=== PATIENT | female | born 2005 | race African-American/Black ===

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

== ENCOUNTER 2025-01-26 18:54 | Emergency (ER) | payer SELFPAY ==
--- NOTE | 2025-01-26 21:03 | EDPHYS ---
Physician Documentation [facility] Name: Rivas Vidal Age: 19 yrs Sex: Female : 2005 Arrival Date: 01/26/2025 Time: 18:54 Bed IW3 Private MD: ED Physician Terrence Jo HPI: 01/26 20:35 This 19 yrs old Black Female presents to ER via Ambulatory with complaints of Allergic cp Reaction. 20:35 swelling, tenderness of right upper eyelid. cp 20:35 Onset: The symptoms/episode began/occurred gradually, 2 week(s) ago. Duration: the cp symptoms are continuous. Associated signs and symptoms: Pertinent negatives: fever, drainage. Patient does not utilize any form of vision correction. 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 - Infectious Disease History:: Denies. - Social history:: Smoking status: Reported history of juuling and/or vaping. Patient/guardian denies using alcohol, street drugs. ROS: 20:40 Constitutional: Negative for chills, fever, cp 20:40 Eyes: Positive for swelling, tenderness of right upper eyelid, Negative for visual disturbance, 20:40 ENT: Negative for drainage from ear(s), ear pain, sore throat, difficulty swallowing, difficulty handling secretions, 20:40 Respiratory: Negative for cough, shortness of breath, wheezing, 20:40 Abdomen/GI: Negative for abdominal pain, vomiting, diarrhea, constipation, 20:40 Skin: Negative for rash, 20:40 All other systems are negative, Exam: 20:45 Constitutional: The patient appears in no acute distress, alert, awake, comfortable, cp non-toxic, well developed, well nourished, 20:45 Constitutional: This is a well developed, well nourished patient who is awake, alert, cp and in no acute distress. 20:45 Eyes: Periorbital structures: appear normal, Pupils: equal, round, and reactive to light and accomodation, Extraocular movements: intact throughout, Conjunctiva: normal, no exudate, no injection, Examination of the other eye reveals no obvious gross abnormality, right upper lid with mid swelling, noted stye, minimal erythema. 20:45 ENT: External ear(s): are unremarkable, Nose: is normal, Mouth: Lips: moist, Oral mucosa: moist, 20:45 Neck: ROM/movement: limited range of motion, is not appreciated, Meningeal signs: are not present, Lymph nodes: no appreciated lymphadenopathy, 20:45 Chest/axilla: Inspection: normal, 20:45 Cardiovascular: Rate: normal, 20:45 Respiratory: the patient does not display signs of respiratory distress, Respirations: normal, no use of accessory muscles, no retractions, labored breathing, is not present, Breath sounds: are clear throughout, no decreased breath sounds, no stridor, no wheezing, 20:45 Abdomen/GI: Exam negative for discomfort, distension, guarding, Inspection: abdomen appears normal, 20:45 Neuro: Orientation: to person, place \T\ time. Mentation: is normal, Vital Signs: 19:06 BP 127 / 84; Pulse 68; Resp 20; Temp 97; Pulse Ox 100% ; Weight 45.81 kg; Height 5 ft. bp 1 in. ; Pain 0/10; 21:17 BP 116 / 81; Pulse 65; Resp 20; Pulse Ox 100% ; Pain 0/10; bp 19:06 Body Mass Index 19.08 (45.81 kg, 154.94 cm) - Percentile 16.2 % bp 19:06 Pain Scale: Adult bp 21:17 Pain Scale: Adult bp MDM: 19:19 Medical Screening Exam initiated cp 21:02 Data reviewed: vital signs, nurses notes, and as a result, I will discharge patient. cp 21:02 Differential diagnosis: cellulitis, abscess, stye, chalazion. Counseling: I had a cp detailed discussion with the patient and/or guardian regarding the historical points, exam findings, and any diagnostic results supporting the discharge/admit diagnosis, the need for outpatient follow up, an opthalmologist, to return to the emergency department if symptoms worsen or persist or if there are any questions or concerns that arise at home. Administered Medications: No medications were administered Disposition: 01/27 04:01 Co-signature as Attending Physician, Terrence Jo MD I agree with the assessment sp4 and plan of care. I reviewed the patient's care provided by Advanced Practice Provider \T\ agree w/ the diagnosis \T\ care plan. I personally saw the pt \T\ performed a substantive portion of the visit, incldng all aspects of the (History/Exam/Medical Decision Making). Disposition Summary: 01/26/25 21:03 Discharge Ordered Notes: Location: Home cp Problem: new cp Symptoms: have improved cp Condition: Stable cp Diagnosis - Chalazion right upper eyelid cp Followup: cp - With: Austin Devine MD - When: 1 week - Reason: swelling, pain continues Discharge Instructions: - Discharge Summary Sheet cp - Chalazion cp - Stye cp Forms: - Medication Reconciliation Form cp - Antibiotic Education cp - Prescription Opioid Use cp - Patient Portal Instructions cp - Leadership Thank You Letter cp Prescriptions: - Cephalexin 500 mg Oral Capsule - take 1 capsule ORAL route every 8 hours for 10 days; 30 capsule; Refills: 0, cp Product Selection Permitted - Erythromycin 5 mg/gram (0.5 %) Ophthalmic ointment - apply 1 ribbon OPHTHALMIC route every 8 hours; 5 gram tube; Refills: 0, Product cp Selection Permitted Signatures: Chaim Sol PA-C PA-C cp Peltier, Brian, RN RN Terrence Verduzco MD MD sp4
--- NOTE | 2025-01-26 21:03 | ER ---
Nurse's Notes [facility] Name: Rivas Vidal Age: 19 yrs Sex: Female : 2005 Arrival Date: 01/26/2025 Time: 18:54 Bed IW3 Private MD: Diagnosis: Chalazion right upper eyelid Presentation: 01/26 19:06 Chief complaint: Patient states: STATES SHE HAD AN ALLERGIC REACTION TO NEW DRYER bp SHEETS 2 WEEKS AGO. NOW HAD A STYE ON TOP OF RIGHT EYE LID. Coronavirus screen: At this time, the client does not indicate any symptoms associated with coronavirus-19. Ebola Screen: No symptoms or risks identified at this time. Onset: The symptoms/episode began/occurred 2 week(s) ago. Initial Sepsis Screen: Does the patient meet any 2 criteria? No. Patient's initial sepsis screen is negative. Does the patient have a suspected source of infection? No. Patient's initial sepsis screen is negative. Risk Assessment: Do you want to hurt yourself or someone else? Patient reports no desire to harm self or others. 19:06 Method Of Arrival: Ambulatory bp 19:06 Acuity: CLIFFORD 5 bp Triage Assessment: 19:11 General: Appears in no apparent distress. comfortable, Behavior is calm, cooperative, bp appropriate for age. Pain: Denies pain. EENT: Lid(s) w/ stye noted right upper eyelid. EENT: Reports blurred vision in iris of right eye. Neuro: Reports headache. Cardiovascular: No deficits noted. 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 - Infectious Disease History:: Denies. - Social history:: Smoking status: Reported history of juuling and/or vaping. Patient/guardian denies using alcohol, street drugs. Screenin:17 [facility] ED Fall Risk Assessment (Adult) History of falling in the last 3 months, bp including since admission No falls in past 3 months (0 pts) Confusion or Disorientation No (0 pts) Intoxicated or Sedated No (0 pts) Impaired Gait No (0 pts) Mobility Assist Device Used No (0 pt) Altered Elimination No (0 pt) Score/Fall Risk Level 0 - 2 = Low Risk Oriented to surroundings, Maintained a safe environment, Educated pt \T\ family on fall prevention, incl call for assistance when getting out of bed, Assessed \T\ reinforced patient's understanding of fall precautions. Abuse screen: Denies threats or abuse. Nutritional screening: No deficits noted. Tuberculosis screening: No symptoms or risk factors identified. Assessment: 21:17 Reassessment: SEE TRIAGE ASSESSMENT. bp 21:18 Respiratory: Airway Respiratory effort is even, unlabored. bp Vital Signs: 19:06 BP 127 / 84; Pulse 68; Resp 20; Temp 97; Pulse Ox 100% ; Weight 45.81 kg; Height 5 ft. bp 1 in. ; Pain 0/10; 21:17 BP 116 / 81; Pulse 65; Resp 20; Pulse Ox 100% ; Pain 0/10; bp 19:06 Body Mass Index 19.08 (45.81 kg, 154.94 cm) - Percentile 16.2 % bp 19:06 Pain Scale: Adult bp 21:17 Pain Scale: Adult bp ED Course: 18:56 Patient arrived in ED. im 19:02 Chaim Sol PA-C is PHCP. cp 19:02 Terrence Jo MD is Attending Physician. cp 19:11 Triage completed. bp 19:11 Arm band placed on right wrist. bp 21:00 Austin Devine MD is Referral Physician. cp 21:17 Patient has correct armband on for positive identification. bp 21:17 No provider procedures requiring assistance completed. Patient did not have IV access bp during this emergency room visit. Administered Medications: No medications were administered Medication: 21:17 VIS not applicable for this client. bp Outcome: 21:03 Discharge ordered by . cp 21:17 Discharged to home ambulatory, with family, bp 21:17 Condition: good 21:17 Discharge instructions given to patient, Instructed on discharge instructions, medication usage, Demonstrated understanding of instructions, medications, Prescriptions given X 2, 21:19 Patient left the ED. bp Signatures: Chaim Sol PA-C PA-C cp Peltier, Brian, RN RN bp [place] im
[2025-01-26 21:23] VITALS: TEMP 97; O2SAT 100
[2025-01-26 21:24] VITALS: BP 116/81
== END 2025-01-26 21:19 | disposition home or self-care (01) ==
LOC: ER 18:54
DX: H00.11 Chalazion right upper eyelid (principal)
CPT/HCPCS: 99283